=== PATIENT | female | born 1945 | race African-American/Black ===

== ENCOUNTER → 2017-02-19 | Outpatient (CLI) | payer BC ==
[~2017-02-19] MED LIST: ALENDRONATE SOD70 M1 PO; ASPIRIN81 M1 PO; LISINOPRIL/HCTZ1 TA1 PO; OSCAL ULTRA 6001 TA1 PO; PRESERVISION1 SGL PO; SUPER EPA 1201200 MG PO; VITAMIN D1000 IU PO
== END | disposition home or self-care (01) ==
LOC: RAD 15:56
DX: M25.461 Effusion, right knee (principal); M25.462 Effusion, left knee

== ENCOUNTER → 2017-02-25 | Outpatient (CLI) | payer BC | END | disposition home or self-care (01) | LOC: MAMMO 15:53 | DX: Z12.31 Encounter for screening mammogram for malignant neoplasm of breast (principal) ==

== ENCOUNTER → 2017-11-03 | Outpatient (CLI) | payer BC | END | disposition home or self-care (01) | LOC: US 10-29 13:30 | DX: I82.492 Acute embolism and thrombosis of other specified deep vein of left lower extremity (principal) ==

== ENCOUNTER → 2021-09-25 | Outpatient (CLI) | payer BC | END | disposition home or self-care (01) | LOC: COVID19 18:05 | PROVIDERS: ATTEND Podiatrist Foot & Ankle Surgery | DX: U07.1 COVID-19 (principal) ==

== ENCOUNTER → 2022-01-10 | Outpatient (CLI) | payer BC | END | disposition home or self-care (01) | LOC: CT 16:00 | PROVIDERS: ATTEND Internal Medicine Nephrology | DX: K57.30 Diverticulosis of large intestine without perforation or abscess without bleeding (principal); R59.0 Localized enlarged lymph nodes; D25.9 Leiomyoma of uterus, unspecified ==

== ENCOUNTER → 2022-03-12 | Outpatient (CLI) | payer BC | END | disposition home or self-care (01) | LOC: MAMMO 15:52 | PROVIDERS: ATTEND Internal Medicine Nephrology | DX: Z12.31 Encounter for screening mammogram for malignant neoplasm of breast (principal); N63.21 Unspecified lump in the left breast, upper outer quadrant ==

== ENCOUNTER → 2023-04-22 | Outpatient (CLI) | payer BC | END | disposition home or self-care (01) | LOC: MAMMO 02:08 | PROVIDERS: ATTEND Internal Medicine Nephrology | DX: Z12.31 Encounter for screening mammogram for malignant neoplasm of breast (principal) ==

== ENCOUNTER → 2023-10-11 | Outpatient (CLI) | payer BC ==
[2023-10-11 08:35] LABS: BASO % 0.9 % (0.0-1.0); EOS # 0.1 10*3/uL (0.0-0.4); EOS % 1.9 % (1.0-4.0); HEMATOCRIT 37.8 % (37.0-47.0); LYMPH # 0.8 10*3/uL (1.3-4.4); LYMPH % 18.2 % (27.0-41.0); MEAN CELL VOLUME 90.6 fl (81.0-99.0); MEAN CORPUSCULAR HGB 29.5 pg (27.0-31.0); MEAN CORPUSCULAR HGB CONC 32.5 g/dl (33.0-37.0); MEAN PLATELET VOLUME 8.9 fl (9.6-12.3); MONO # 0.3 10*3/uL (0.1-1.0); NEUT % 70.8 % (47.0-73.0); PLATELET COUNT AUTOMATED 239 10*3/uL (130-400); RED BLOOD COUNT 4.17 10*6/uL (4.10-5.10); WHITE BLOOD COUNT 4.2 10*3/uL (4.8-10.8)
[2023-10-11 08:52] LABS: ALKALINE PHOSPHATASE 52 U/L (46-116); BUN 16 mg/dl (9-23); CHLORIDE 104 mmol/L (98-107); FREE T4 1.13 ng/dl (0.89-1.76); POTASSIUM 3.8 mmol/L (3.4-5.1); SGPT/ALT 16 U/L (5-49); TOTAL PROTEIN 6.9 gm/dL (6.0-8.0)
[2023-10-11 10:05] LABS: VITAMIN D, 25-HYDROXY 65.4 ng/mL (30-100)
== END | disposition home or self-care (01) ==
LOC: LAB 07:16
PROVIDERS: ATTEND Internal Medicine Nephrology
DX: I10 Essential (primary) hypertension (principal); M81.0 Age-related osteoporosis without current pathological fracture

== ENCOUNTER 2024-07-12 20:20 | Emergency (ER) | payer BC ==
[~2024-07-12] VITALS: Ht 162.5 cm; Wt 74.4 kg
== END 2024-07-12 23:04 | disposition home or self-care (01) ==
LOC: ED 20:20
DX: R42 Dizziness and giddiness (principal); I10 Essential (primary) hypertension; M19.90 Unspecified osteoarthritis, unspecified site; Z90.89 Acquired absence of other organs; Z98.890 Other specified postprocedural states

== ENCOUNTER → 2024-12-03 | Outpatient (CLI) | payer BC ==
[~2024-12-03] MED LIST changes: +CIPRO500 MG PO; +HYDROXYCHLOROQ200 M1 PO
== END | disposition home or self-care (01) ==
LOC: RAD 16:13
PROVIDERS: ATTEND Internal Medicine Nephrology
DX: M17.11 Unilateral primary osteoarthritis, right knee (principal); M25.861 Other specified joint disorders, right knee; M25.761 Osteophyte, right knee